=== PATIENT | male | born 1985 | race Two or more races ===

== ENCOUNTER 2017-05-02 06:03 | Emergency (ER) | payer OTHER ==
[~2017-05-02] VITALS: Ht 175.3 cm; Wt 59.8 kg
[2017-05-02 06:04] VITALS: BP 155/76
== END 2017-05-02 07:21 | disposition home or self-care (01) ==
LOC: ED 07:15
DX: M25.531 Pain in right wrist (principal); M77.8 Other enthesopathies, not elsewhere classified
CPT/HCPCS: 29125

== ENCOUNTER 2017-05-08 11:16 | Emergency (ER) | payer SELFPAY ==
[~2017-05-08] VITALS: Ht 175.3 cm; Wt 60.6 kg
[2017-05-08 11:19] VITALS: BP 125/73
== END 2017-05-08 12:39 | disposition home or self-care (01) ==
LOC: ED 12:03
DX: M25.531 Pain in right wrist (principal)
CPT/HCPCS: 99282